=== PATIENT | female | born 1960 | race Caucasian/White ===

== ENCOUNTER 2016-08-19 12:12 | Emergency (ER) | payer OTHER ==
[~2016-08-19] VITALS: Ht 172.7 cm; Wt 64.4 kg
[2016-08-19] MEDS ORDERED: IBU800 MG PO (13:57)
== END 2016-08-19 14:25 | disposition home or self-care (01) ==
LOC: ED 12:12
DX: S90.32XA Contusion of left foot, initial encounter (principal); M79.672 Pain in left foot; F17.200 Nicotine dependence, unspecified, uncomplicated; Z88.0 Allergy status to penicillin; Z88.8 Allergy status to other drugs, medicaments and biological substances; W20.8XXA Other cause of strike by thrown, projected or falling object, initial encounter; Y93.89 Activity, other specified; Y92.9 Unspecified place or not applicable; Y99.9 Unspecified external cause status

== ENCOUNTER → 2016-10-13 | Outpatient (CLI) | payer OTHER ==
[~2016-10-13] MED LIST: IBU800 MG PO
== END | disposition home or self-care (01) ==
LOC: RAD 17:07
DX: M25.539 Pain in unspecified wrist (principal)

== ENCOUNTER → 2019-04-26 | Outpatient (CLI) | payer OTHER | END | disposition home or self-care (01) | LOC: RAD 16:50 | DX: S22.32XA Fracture of one rib, left side, initial encounter for closed fracture (principal); X58.XXXA Exposure to other specified factors, initial encounter; Y93.89 Activity, other specified; Y92.89 Other specified places as the place of occurrence of the external cause; Y99.8 Other external cause status ==

== ENCOUNTER → 2019-06-28 | Outpatient (CLI) | payer OTHER ==
--- NOTE | ~2019-06-28 | PF ---
[place], [place] PULMONARY FUNCTION TEST NAME: BLAINE PALAFOX UNIT #: [id number] ROOM: DOCTOR: JUDIT HUERTA MD,ISACC BIRTHDATE: [birth year] DOS: 06/28/2019 ORDERED BY: Dr. Chris Ortiz. HISTORY: The patient recorded as 59-year-old female, height 68 inches, weight of 150 pounds with BMI 22.8. The patient reported symptoms of shortness of breath with exertion and emphysema. Past tobacco use was noted as 1 pack of cigarettes per day for 44 years. The patient was noted active tobacco use. SPIROMETRY: The FVC 3.509 liters, 96% predicted value, FEV1 2.09 liters, 71% predicted value. Ratio of FEV1/FVC recorded at 58%. Post-bronchodilator, no improvement noted. LUNG VOLUME: Thoracic gas volume 151%, residual volume 155%, total lung capacity 190%. RV/TLC ratio 128%. The patient's airway resistance and passive conductance noted mildly abnormal with partial improvement postbronchodilator. The patient's lung diffusion recorded moderately decreased at 50% without correction of carbon monoxide, hemoglobin values. FINAL IMPRESSION: Current test noted finding consistent with chronic obstructive pulmonary disease and consideration of mild bronchial asthma as well. Clinical correlation would be advised. ISACC SPAIN MD CM:PFREPORT:PULMONARY FUNCTION TEST [id number] ISACC HUERTA MD
== END | disposition home or self-care (01) ==
LOC: CP 12:47
DX: J43.9 Emphysema, unspecified (principal)

== ENCOUNTER → 2019-06-29 | Outpatient (CLI) | payer OTHER | END | disposition home or self-care (01) | LOC: US 02:03 | DX: R93.2 Abnormal findings on diagnostic imaging of liver and biliary tract (principal) ==

== ENCOUNTER → 2019-11-03 | Outpatient (CLI) | payer OTHER | END | disposition home or self-care (01) | LOC: CARD 09:36 | DX: R00.2 Palpitations (principal) ==

== ENCOUNTER → 2020-01-23 | Outpatient (CLI) | payer OTHER ==
[~2020-01-23] MED LIST changes: +TOPROL XL25 MG PO
--- NOTE | 2020-01-23 11:05 | NUR ---
INFORMED SIGNED CONSENT OBTAINED FOR CGXT WITH DR LÓPEZ, RESTING EKG SINUS BRADYCARDIA HR 52 BP 138/72 IN SUPINE POSITION, STANDING HR 71 BP 128/68. PT COMPLETED 8:45 OF A VIOLET PROTOCOL WITH PT COMPLETING 2:45 OF STAGE III AT 3.4 MPH AND 14% GRADE. PT REACHED A PEAK HR OF 151 WHICH REPRESENTS 92% A MAX BP OF 140/68. PVC'S NOTED WITH NON DIAGNOSITIC ST CHANGES. TEST TERMINATED DUE TO FATIGUE AND SOB. LAST RECOVERY HR OF 83 BP 112/66. PT IN STABLE CONDITION, AWAITING NUCLEAR IMAGES.
== END | disposition home or self-care (01) ==
LOC: CARD 00:14
DX: I49.3 Ventricular premature depolarization (principal); R00.2 Palpitations; R07.89 Other chest pain

== ENCOUNTER → 2020-11-06 | Outpatient (CLI) | payer OTHER ==
[2020-11-06 07:19] LABS: HEMATOCRIT 48.2 % (37.0-47.0); MEAN CELL VOLUME 92.7 fl (81.0-99.0); MEAN CORPUSCULAR HGB 29.6 pg (27.0-31.0); MEAN PLATELET VOLUME 10.1 fl (9.6-12.3); PLATELET COUNT AUTOMATED 208 10*3/uL (130-400); RED CELL DISTRI WIDTH 13.2 % (0-14.5); WHITE BLOOD COUNT 5.5 10*3/uL (4.8-10.8)
[2020-11-06 07:43] LABS: ATYPICAL LYMPHS 1 % (0-0); BASOPHILS 2 % (0-1); PLATELET SUFFICIENCY NORMAL (NORMAL); TOTAL CELLS COUNTED 100 #CELLS
[2020-11-06 07:49] LABS: ALBUMIN 3.5 gm/dl (3.1-4.5); ALKALINE PHOSPHATASE 78 U/L (45-117); BUN 12 mg/dl (7-24); CHLORIDE 107 mmol/L (98-107); CHOLESTEROL 141 mg/dL (<200); CREATININE 0.93 mg/dL (0.55-1.02); HDL CHOLESTEROL 60 mg/dl (40-60); LDL CHOLESTEROL 53 mg/dL (9-159); POTASSIUM 4.2 mmol/L (3.5-5.1); SGOT/AST 20 IU/L (3-35); SGPT/ALT 16 U/L (12-78); SODIUM 139 mmol/L (136-145); TOTAL PROTEIN 7.6 gm/dL (6.4-8.2); TRIGLYCERIDES 138 mg/dl (<150); VLDL CHOLESTEROL 28 mg/dL (6-40)
[2020-11-06 07:59] LABS: THYROID STIM HORMONE (HS) 6.18 uIU/ml (0.358-4.75)
== END | disposition home or self-care (01) ==
LOC: LAB 06:57
PROVIDERS: Nurse Practitioner Family; ATTEND Clinical Nurse Specialist Adult Health
DX: I10 Essential (primary) hypertension (principal); E78.2 Mixed hyperlipidemia; E55.9 Vitamin D deficiency, unspecified; R53.1 Weakness; Z79.899 Other long term (current) drug therapy

== ENCOUNTER → 2021-11-27 | Outpatient (CLI) | payer OTHER | END | disposition home or self-care (01) | LOC: RAD 14:50 | PROVIDERS: ATTEND Nurse Practitioner Family | DX: J44.9 Chronic obstructive pulmonary disease, unspecified (principal); F17.210 Nicotine dependence, cigarettes, uncomplicated ==

== ENCOUNTER → 2022-06-02 | Outpatient (CLI) | payer OTHER | END | disposition home or self-care (01) | LOC: US 09:30 | PROVIDERS: ATTEND Nurse Practitioner Family | DX: N26.1 Atrophy of kidney (terminal) (principal); I10 Essential (primary) hypertension ==

== ENCOUNTER → 2024-02-11 | Outpatient (CLI) | payer OTHER | END | disposition home or self-care (01) | LOC: CARD 15:15 | PROVIDERS: ATTEND Nurse Practitioner Family | DX: R07.9 Chest pain, unspecified (principal) ==

== ENCOUNTER → 2025-03-07 | Outpatient (CLI) | payer OTHER | END | disposition home or self-care (01) | LOC: CT 02-27 10:00 | PROVIDERS: ATTEND Nurse Practitioner Family | DX: Z12.2 Encounter for screening for malignant neoplasm of respiratory organs (principal); M43.8X4 Other specified deforming dorsopathies, thoracic region; R07.81 Pleurodynia; G89.29 Other chronic pain; M54.6 Pain in thoracic spine; F17.210 Nicotine dependence, cigarettes, uncomplicated ==